=== PATIENT | female | born 1985 | race Caucasian/White ===

== ENCOUNTER 2023-02-24 14:02 | Emergency (ER) | payer OTHER | END 2023-02-24 15:00 | disposition home or self-care (01) | LOC: NAV ERS 14:02 | DX: S16.1XXA Strain of muscle, fascia and tendon at neck level, initial encounter (principal); F17.290 Nicotine dependence, other tobacco product, uncomplicated; V89.2XXA Person injured in unspecified motor-vehicle accident, traffic, initial encounter | CPT/HCPCS: 99283 ==